=== PATIENT | male | born 1945 | race Caucasian/White ===

== ENCOUNTER 2018-11-14 07:39 | Day surgery (SDC) | payer OTHER | END 2018-11-14 22:57 | disposition home or self-care (01) | LOC: WOUND 07:39 | DX: S91.102A Unspecified open wound of left great toe without damage to nail, initial encounter (principal); S91.101A Unspecified open wound of right great toe without damage to nail, initial encounter; E78.5 Hyperlipidemia, unspecified | CPT/HCPCS: 87071; 87075; 87205; G0463 ==

== ENCOUNTER 2018-11-21 09:50 | Day surgery (SDC) | payer OTHER | END 2018-11-21 22:54 | disposition home or self-care (01) | LOC: WOUND 09:50 | DX: E11.621 Type 2 diabetes mellitus with foot ulcer (principal); L97.519 Non-pressure chronic ulcer of other part of right foot with unspecified severity; L97.529 Non-pressure chronic ulcer of other part of left foot with unspecified severity; E78.5 Hyperlipidemia, unspecified ==

== ENCOUNTER 2018-11-28 09:41 | Day surgery (SDC) | payer OTHER | END 2018-11-28 23:08 | disposition home or self-care (01) | LOC: WOUND 09:41 | DX: E11.621 Type 2 diabetes mellitus with foot ulcer (principal); L97.519 Non-pressure chronic ulcer of other part of right foot with unspecified severity; L97.529 Non-pressure chronic ulcer of other part of left foot with unspecified severity; S90.425D Blister (nonthermal), left lesser toe(s), subsequent encounter; E78.5 Hyperlipidemia, unspecified; E11.40 Type 2 diabetes mellitus with diabetic neuropathy, unspecified ==

== ENCOUNTER 2018-12-01 08:07 | Day surgery (SDC) | payer OTHER | END 2018-12-01 23:48 | disposition home or self-care (01) | LOC: WOUND 08:07 | DX: L89.893 Pressure ulcer of other site, stage 3 (principal); S90.425A Blister (nonthermal), left lesser toe(s), initial encounter; E11.40 Type 2 diabetes mellitus with diabetic neuropathy, unspecified | CPT/HCPCS: G0463 ==

== ENCOUNTER 2018-12-05 00:24 | Day surgery (SDC) | payer OTHER | END 2018-12-05 23:07 | disposition home or self-care (01) | LOC: WOUND 00:24 | DX: E11.621 Type 2 diabetes mellitus with foot ulcer (principal); L97.529 Non-pressure chronic ulcer of other part of left foot with unspecified severity; E11.40 Type 2 diabetes mellitus with diabetic neuropathy, unspecified; E78.5 Hyperlipidemia, unspecified ==

== ENCOUNTER 2018-12-12 00:16 | Day surgery (SDC) | payer OTHER | END 2018-12-12 22:52 | disposition home or self-care (01) | LOC: WOUND 00:16 | DX: L89.893 Pressure ulcer of other site, stage 3 (principal); E11.9 Type 2 diabetes mellitus without complications | CPT/HCPCS: G0463 ==

== ENCOUNTER 2019-10-20 00:04 | Day surgery (SDC) | payer OTHER | END 2019-10-20 22:49 | disposition home or self-care (01) | LOC: WOUND 00:04 | DX: E11.621 Type 2 diabetes mellitus with foot ulcer (principal); L97.522 Non-pressure chronic ulcer of other part of left foot with fat layer exposed; L97.512 Non-pressure chronic ulcer of other part of right foot with fat layer exposed; L97.412 Non-pressure chronic ulcer of right heel and midfoot with fat layer exposed; E11.21 Type 2 diabetes mellitus with diabetic nephropathy; E78.5 Hyperlipidemia, unspecified ==

== ENCOUNTER 2019-11-03 00:12 | Day surgery (SDC) | payer OTHER | END 2019-11-03 22:53 | disposition home or self-care (01) | LOC: WOUND 00:12 | DX: E11.621 Type 2 diabetes mellitus with foot ulcer (principal); E11.21 Type 2 diabetes mellitus with diabetic nephropathy; L97.522 Non-pressure chronic ulcer of other part of left foot with fat layer exposed; L97.512 Non-pressure chronic ulcer of other part of right foot with fat layer exposed; L97.412 Non-pressure chronic ulcer of right heel and midfoot with fat layer exposed; E11.40 Type 2 diabetes mellitus with diabetic neuropathy, unspecified; E78.5 Hyperlipidemia, unspecified ==

== ENCOUNTER 2019-11-10 00:13 | Day surgery (SDC) | payer OTHER | END 2019-11-10 22:43 | disposition home or self-care (01) | LOC: WOUND 00:13 | DX: E11.621 Type 2 diabetes mellitus with foot ulcer (principal); L97.522 Non-pressure chronic ulcer of other part of left foot with fat layer exposed; L97.512 Non-pressure chronic ulcer of other part of right foot with fat layer exposed; L97.412 Non-pressure chronic ulcer of right heel and midfoot with fat layer exposed; E11.21 Type 2 diabetes mellitus with diabetic nephropathy; E78.5 Hyperlipidemia, unspecified ==

== ENCOUNTER 2019-11-16 08:46 | Day surgery (SDC) | payer OTHER | END 2019-11-16 22:37 | disposition home or self-care (01) | LOC: WOUND 08:46 | DX: E11.621 Type 2 diabetes mellitus with foot ulcer (principal); E11.21 Type 2 diabetes mellitus with diabetic nephropathy; L97.522 Non-pressure chronic ulcer of other part of left foot with fat layer exposed; L97.512 Non-pressure chronic ulcer of other part of right foot with fat layer exposed; L97.412 Non-pressure chronic ulcer of right heel and midfoot with fat layer exposed | CPT/HCPCS: G0463 ==

== ENCOUNTER 2019-11-30 00:36 | Day surgery (SDC) | payer OTHER | END 2019-11-30 22:45 | disposition home or self-care (01) | LOC: WOUND 00:36 | DX: E11.621 Type 2 diabetes mellitus with foot ulcer (principal); E11.21 Type 2 diabetes mellitus with diabetic nephropathy; L97.522 Non-pressure chronic ulcer of other part of left foot with fat layer exposed; L97.512 Non-pressure chronic ulcer of other part of right foot with fat layer exposed; L97.412 Non-pressure chronic ulcer of right heel and midfoot with fat layer exposed | CPT/HCPCS: G0463 ==

== ENCOUNTER 2019-12-07 00:14 | Day surgery (SDC) | payer OTHER | END 2019-12-07 22:42 | disposition home or self-care (01) | LOC: WOUND 00:14 | DX: E11.621 Type 2 diabetes mellitus with foot ulcer (principal); L97.522 Non-pressure chronic ulcer of other part of left foot with fat layer exposed; L97.512 Non-pressure chronic ulcer of other part of right foot with fat layer exposed; L97.412 Non-pressure chronic ulcer of right heel and midfoot with fat layer exposed; E11.21 Type 2 diabetes mellitus with diabetic nephropathy | CPT/HCPCS: G0463 ==

== ENCOUNTER 2019-12-14 00:46 | Day surgery (SDC) | payer OTHER | END 2019-12-14 22:54 | disposition home or self-care (01) | LOC: WOUND 00:46 | DX: E11.621 Type 2 diabetes mellitus with foot ulcer (principal); E11.21 Type 2 diabetes mellitus with diabetic nephropathy; L97.522 Non-pressure chronic ulcer of other part of left foot with fat layer exposed; L97.512 Non-pressure chronic ulcer of other part of right foot with fat layer exposed; L97.412 Non-pressure chronic ulcer of right heel and midfoot with fat layer exposed | CPT/HCPCS: G0463 ==

== ENCOUNTER → 2020-02-20 | Outpatient (CLI) | payer OTHER | LOC: LAB 11:28 → LAB SHORT 11:28 | DX: R30.9 Painful micturition, unspecified (principal) | CPT/HCPCS: 87077; 87086; 87147; 87186 ==

== ENCOUNTER 2022-06-16 09:58 | Inpatient (IN) | payer OTHER ==
[~2022-06-16] VITALS: Ht 182.9 cm; Wt 82.6 kg
[2022-06-16] VITALS (18 sets, daily range): BP systolic 118–154; BP diastolic 72–84
[2022-06-16 10:48] LABS: EOSINOPHILS PERCENT AUTO 0 % (0-6); Hematocrit 45.8 % (37.0-53.0); Hemoglobin 15.9 g/dL (13.5-17.5); IMMATURE GRAN PERCENT AUTO 4 % (0-1); LYMPHOCYTES ABSOLUTE AUTO 1.54 K/mm3 (0.84-5.20); LYMPHOCYTES PERCENT AUTO 10 % (21-46); MONOCYTES ABSOLUTE AUTO 0.73 K/mm3 (0.16-1.47); MONOCYTES PERCENT AUTO 5 % (4-13); Mean Corpuscular HGB 28.4 pg (26.0-34.0); Mean Corpuscular HGB Conc 34.7 g/dL (31.5-36.5); Mean Corpuscular Volume 82 fL (80-100); Mean Platelet Volume 9.5 fL (9.1-12.4); NEUTROPHILS PERCENT AUTO 82 % (41-73); Platelet Count 366 K/mm3 (150-400); RDW Coefficient Variation 12.3 % (11.7-14.2); RDW Standard Deviation 37.2 fL (35.1-46.3); Red Blood Cell Count 5.59 M/mm3 (4.30-5.90); White Blood Cell Count 16.08 K/mm3 (4.00-11.30)
[2022-06-16 10:51] LABS: BASOPHILS ABSOLUTE AUTO 0.01 K/mm3 (0.00-0.23); BASOPHILS PERCENT AUTO 0 % (0-2)
[2022-06-16 11:03] LABS: Base Excess Venous -7.2 mmol/L; Bicarbonate Venous 19.3 mmol/L (24.0-30.0); PCO2 Venous 35.5 mmHg (38-42); pH Blood Venous 7.33 (7.34-7.37)
[2022-06-16 11:08] LABS: Magnesium, Blood 2.9 mg/dL (1.6-2.4)
[2022-06-16 11:10] LABS: Thyroid Stimulating Hormone 2.27 uIU/mL (0.360-4.800)
[2022-06-16 12:09] LABS: Albumin, Blood 2.5 g/dL (3.4-5.0); Albumin/Globulin Ratio 0.4 (0.8-1.8); Beta-hydroxybutyrate 55.2 mg/dL (0.2-2.8); Bilirubin, Total 0.5 mg/dL (0.1-1.0); Bun/Creatinine Ratio 55.5 (12.0-20.0); Calcium, Blood 9.6 mg/dL (8.5-10.1); Creatinine, Blood 0.92 mg/dL (0.60-1.20); Globulin, Blood 6.8 g/dL (2.2-4.0); Potassium, Blood 5.3 mmol/L (3.5-5.5); Total Protein, Blood 9.3 g/dL (6.4-8.2)
[2022-06-16 12:17] LABS: Source, Urine Clean Catch
[2022-06-16 12:19] LABS: Appearance, Urine Clear (Clear); Bilirubin, Urine Neg (Neg); Blood, Urine 5+ (Neg); Color, Urine Yellow (P-Yellow); Glucose Qualitative, Urine 4+ (Neg); Ketones, Urine 3+ (Neg); Leukocyte Esterase, Urine 2+ (Neg); Nitrite, Urine Neg (Neg); Protein, Urine 1+ (Neg); Urobilinogen, Urine NORM (Normal)
[2022-06-16 12:25] LABS: White Blood Cells, Urine Not Seen /hpf (0-5)
[2022-06-16 12:26] LABS: Bacteria Few /hpf; Squamous Epithelial Cells Not Seen /hpf (Few)
[2022-06-16 15:53] LABS: Bun/Creatinine Ratio 53.1 (12.0-20.0); Calcium, Blood 8.7 mg/dL (8.5-10.1); Creatinine, Blood 0.77 mg/dL (0.60-1.20); Potassium, Blood 4.6 mmol/L (3.5-5.5)
[2022-06-16 17:18] LABS: Albumin, Blood 2.2 g/dL (3.4-5.0); Anion Gap 8 mmol/L (6-16); Blood Urea Nitrogen 41 mg/dL (8-24); Bun/Creatinine Ratio 50.1 (12.0-20.0); CO2, Blood 20 mmol/L (21-32); Calcium, Blood 8.5 mg/dL (8.5-10.1); Chloride, Blood 101 mmol/L (98-108); Creatinine, Blood 0.82 mg/dL (0.60-1.20); Glomerular Filtration Rate 92 (60-); Glucose, Blood 320 mg/dL (70-99); Phosphorus, Blood 3.6 mg/dL (2.5-4.9); Potassium, Blood 4.7 mmol/L (3.5-5.5); Sodium, Blood 129 mmol/L (136-145)
[2022-06-16 17:34] LABS: CHOL/HDL RATIO 7.6; Cholesterol 197 mg/dL (50-200); HDL Cholesterol 26 mg/dL (>39); LDL/HDL RATIO 5.2; Low Density Lipoprotein Chol 136 mg/dL (0-110); Triglycerides 174 mg/dL (30-160); Very Low Density Lipoprot Chol 34 mg/dL (6-32)
--- NOTE | 2022-06-16 19:07 | NUR ---
PATIENT ARRIVED TO UNIT AROUND 1755. DAUGHTER NELL IN ROOM. NO COMPLAINTS OF PAIN. PATIENT AFEBRILE. PATIENT STATES HE USES CANE/ WALKER AT HOME. PER PATIENT AND DAUGHTER REPORT, PATIENT TOOK AUGMENTIN FROM ROOMMATE ON WEDNESDAY, OTHERWISE PATIENT HAS NOT TAKEN PRESCRIBED MEDS FOR OVER 18 MONTHS. PATIENT STATES HE TRIES NOT TO EAT MUCH SO HIS SUGARS AREN'T HIGH. PATIENT SATTING 90% AND GREATER ON RA. PATIENT SR, HR 90S TO LOW 100S. SBP 120S TO 150S. PATIENT GIVEN PRN ZOFRAN FOR NAUSEA. GUAIC + IN ER. TOLLIVER DRAINING DARK YELLOW URINE WITH SEDIMENT NOTED. COCCYX REDDENED BUT BLANCHEABLE. FACE LENARD. D5 1/2 NS INFUSING AT 100 MLS/ HOUR, NS TKO AND INSULIN DRIP AT 2 UNITS/ HOUR. LAST 2 BLOOD SUGARS 240 AND 222. REPORT GIVEN TO ASSUMING WEIGHT RECORDER NURSE.
--- NOTE | 2022-06-16 19:30 | NUR ---
ASSUMED CARE PT IS A&O X4 W/ FLAT AFFECT/WITHDRAWN (PTSD FROM PREVIOUS HOSPITAL EXPERIENCES WHEN YOUNGER PER REPORT). PT'S DAUGHTER AND SON AT BEDSIDE AT BEGINNING OF SHIFT. PT APPEARS TO BE NAUSEOUS (COUGHING/GAGGING INTO EMESIS BAG), BUT DENIES NAUSEA AND REFUSES ANTI-NAUSEA MEDICATION. NO C/O OF CP OR SOB. SPO2 >92% ON RA; MAP >65; HR IN THE 90'S. INSULIN GTT AND D5 1/2NS INFUSING PER ORDER (SEE FLOWSHEET FOR RATES). TOLLIVER PATENT AND DRAINING TO GRAVITY.
[2022-06-16 20:44] LABS: Albumin, Blood 2.2 g/dL (3.4-5.0); Anion Gap 6 mmol/L (6-16); Blood Urea Nitrogen 37 mg/dL (8-24); Bun/Creatinine Ratio 44.6 (12.0-20.0); CO2, Blood 26 mmol/L (21-32); Chloride, Blood 101 mmol/L (98-108); Creatinine, Blood 0.83 mg/dL (0.60-1.20); Glomerular Filtration Rate 92 (60-); Glucose, Blood 268 mg/dL (70-99); Phosphorus, Blood 3.4 mg/dL (2.5-4.9); Potassium, Blood 4.3 mmol/L (3.5-5.5); Sodium, Blood 133 mmol/L (136-145)
--- NOTE | 2022-06-16 21:28 | NUR ---
UPDATE PT REFUSES SCD'S; HAS CHEMICAL PROPHYLAXIS IN THE MORNING.
--- NOTE | 2022-06-16 22:04 | NUR ---
UPDATE DR DAVENPORT CALLED
[2022-06-17] VITALS (20 sets, daily range): BP systolic 97–149; BP diastolic 59–118
--- NOTE | 2022-06-17 02:36 | NUR ---
UPDATE PT REFUSED LAB DRAW THIS AM AND WAS EXPLAINED THE PURPOSE OF THE LABS AND RISKS/BENEFITS OF NOT ADHERING TO CAREPLAN. WHEN INFORMING CHARGE NURSE PT PULLED BOTH IV'S. DR FELIZ INFORMED W/ ORDERS TO START PT ON LONG/SHORT ACTING INSULIN. CURRENTLY ATTEMPTING TO CONTACT FAMILY; UNABLE TO REACH FAMILY AT THIS TIME.
--- NOTE | 2022-06-17 03:07 | NUR ---
PT WAS REFUSING TO TAKE LONG ACTING INSULIN. I SPOKE WITH PT AND EDUCATED HIM ON THE REASON FOR THE MEDICATION. I ASKED HIM WHY HE DID NOT WANT TO TAKE THE MEDICINE AND HE STATED THAT HE "DID NOT TRUST THEM ANYMORE". I ALLOWED HIM TO SEE THE MEDICATION AND THE PT ALLOWED ME TO ADMINISTER PER MD ORDER. VIKTORIA ZHOU RN AND I REPOSITIONED PT IN BED. HE REQUESTED SOME ICE CHIPS AND WARM BLANKETS, THOSE WERE GIVEN TO THE PATIENT WELL. PT PRIMARY NURSE ETHEL WAS UPDATED ON ALL ABOVE. PT DENIES ANY FURTHER NEEDS FROM THIS NURSE AT THIS TIME. INSTRUCTED PT TO NOTIFY STAFF FOR ANY FURTHER NEEDS/CONCERNS
--- NOTE | 2022-06-17 03:19 | NUR ---
UPDATE PT IS MORE AMICABLE TO CARE AFTER EXPLAINING EACH PROCEDURE. STILL STATES HE PREFERS NOT TO RECIEVE ANY MEDICATION, BUT WAS MORE AGREEABLE WHEN INFORMED THAT THIS RN WILL NOT GIVE HIM ANY MEDICATIONS WITHOUT SHOWING HIM. ALSO EDUCATED PT ON DISEASE PROCESS OF DIABETES/DKA.
[2022-06-17 04:15] LABS: BASOPHILS ABSOLUTE AUTO 0.13 K/mm3 (0.00-0.23); BASOPHILS PERCENT AUTO 1 % (0-2); EOSINOPHILS ABSOLUTE AUTO 0.01 K/mm3 (0.00-0.68); EOSINOPHILS PERCENT AUTO 0 % (0-6); Hematocrit 43.5 % (37.0-53.0); Hemoglobin 14.9 g/dL (13.5-17.5); IMMATURE GRAN ABSOLUTE AUTO 0.46 K/mm3 (0.00-0.10); IMMATURE GRAN PERCENT AUTO 3 % (0-1); LYMPHOCYTES ABSOLUTE AUTO 1.85 K/mm3 (0.84-5.20); LYMPHOCYTES PERCENT AUTO 12 % (21-46); MONOCYTES ABSOLUTE AUTO 1.19 K/mm3 (0.16-1.47); MONOCYTES PERCENT AUTO 8 % (4-13); Mean Corpuscular HGB 28.7 pg (26.0-34.0); Mean Corpuscular HGB Conc 34.3 g/dL (31.5-36.5); Mean Corpuscular Volume 84 fL (80-100); Mean Platelet Volume 9.2 fL (9.1-12.4); NEUTROPHILS ABSOLUTE AUTO 11.25 K/mm3 (1.96-9.15); NEUTROPHILS PERCENT AUTO 76 % (41-73); Platelet Count 339 K/mm3 (150-400); RDW Coefficient Variation 12.6 % (11.7-14.2); RDW Standard Deviation 38.1 fL (35.1-46.3); Red Blood Cell Count 5.19 M/mm3 (4.30-5.90); White Blood Cell Count 14.89 K/mm3 (4.00-11.30)
[2022-06-17 04:33] LABS: Bun/Creatinine Ratio 35.7 (12.0-20.0); Calcium, Blood 9.1 mg/dL (8.5-10.1); Creatinine, Blood 0.84 mg/dL (0.60-1.20)
--- NOTE | 2022-06-17 05:07 | NUR ---
SHIFT SUMMARY PT IS A&O W/ SOME INTERMITTENT CONFUSION/FORGETFULNESS; PT STATED HE DID NOT KNOW HE WAS IN THE HOSPITAL, BUT QUICKLY REORIENTED SELF. NO ACUTE EVENTS SINCE LAST NOTE. TOLLIVER CATHETER IS PATENT AND DRAINING TO GRAVITY.
--- NOTE | 2022-06-17 08:00 | NUR ---
INITIAL ASSESSMENT PATIENT ALERT AND ORIENTED X 4, AFEBRILE. PATIENT WEAK BUT MOVES ALL EXTREMITIES. L FOOT DROP NOTED. PATIENT STATES HE USES CANE OR WALKER AT HOME. PATIENT OVERESTIMATES ABILITIES. PATIENT EXPERIENCE PARANOIA AT TIMES DUE TO PAST SHOCK THERAPY IN MEDICAL SETTING. PATIENT HAS FLAT AFFECT; APATHETIC. PATIENT DENIES PAIN. PATIENT SATTING 90% AND GREATER ON RA. PATIENT IN SR TO ST, HR 90S TO LOW 100S. SBP 130S TO 140S. PATIENT DENIES NAUSEA. TOLLIVER DRAINING RAN COLORED URINE WITH SOME SMALL RED CLOTS NOTED; CLOTS IMPROVING. COCCYX REDDENED BUT BLANCHEABLE. GROIN FOLDS REDDENED. FACE FLUSHED. NO IV ACCESS. BLOOD SUGAR 330 THIS AM. BED LOW, CALL LIGHT IN REACH. WILL CONTINUE TO MONITOR PATIENT FREQUENTLY THROUGHOUT SHIFT.
--- NOTE | 2022-06-17 09:00 | NUR ---
DR. CARTAGENA UPDATED ON PATIENT STATUS. INFORMED THAT TROPONIN CONTINUES TO INCREASE AND IS CURRENTLY AT 582. INFORMED THAT PATIENT HAD A PARANOID EPISODE LAST NIGHT (FROM HOSPITALS, ETC FROM SHOCK THERAPY WHEN YOUNG PER DAUGHTER REPORT) AND ENDED UP RIPPING OUT ALL IVS AND LINES, THEREFORE DOES NOT HAVE ANY IV ACCESS AT THIS TIME. INFORMED THAT PATIENT IS ON IV PEPCID AND PO PROTONIX. DR. SALAS TO KEEP BOTH MEDS AND MAKE PEPCID PO.
[2022-06-17 12:29] LABS: Glucose, Blood 541 mg/dL (70-99)
--- NOTE | 2022-06-17 12:50 | NUR ---
DR. CARTAGENA CALLED AND INFORMED THAT PATIENT HAD HIGH GLUCOSE READING ON GLUCOMETER AND CAME BACK AT 541 FROM LAB DRAW. ORDERED FOR CHANGE FROM MEDIUM SLIDING SCALE TO HIGH SLIDING SCALE. STATED THAT IT IS OKAY TO GIVE PATIENT LUNCH. INFORMED THAT TOLLIVER IN FOR RETENTION. STATED SHE WOULD ORDER FLOMAX. STATED TO GIVE FLOMAX, BLADDER TRAIN AND GET TOLLIVER OUT.
--- NOTE | 2022-06-17 15:34 | NUR ---
Spiritual Care Visit. Pt. awake in bed and welcomes my visit. Pts. daughter and pts. roommate are present. Pt. is pleasant but displays moments of confusion. Facilitate a life review and established rapport as common life experience is shared. Pt. displayed evidence of being encouraged. Prayed with Pt. and roommate as daughter had left the room. Pt. and roomate verbalize gratitude for the spiritual care visit, and welcome this machine featheredger and reducer to return.
--- NOTE | 2022-06-17 16:40 | NUR ---
BLOOD SUGAR 322; HSS COVERAGE GIVEN. HR IN THE 80S. SBP IN THE 1-TEENS. NO OTHER ACUTE CHANGES NOTED AT THIS TIME. NO COMPLAINTS. WILL CONTINUE TO MONITOR.
--- NOTE | 2022-06-17 19:00 | NUR ---
SHIFT SUMMARY PATIENT REMAINED ALERT AND ORIENTED X 4, AFEBRILE. PATIENT HAD NO COMPLAINTS OF PAIN DURING SHIFT. PATIENT HAD NO EPISODES OF PARANOIA. PATIENT FLAT BUT WOULD JOKE WITH NURSE OCCASIONALLY. PATIENT WEAK, 1 PERSON ASSIST TO CHAIR WITH WALKER. PATIENT WORKED WITH OT THIS SHIFT. PATIENT REMAINED ON RA. HR 80S TO 1-TEENS. SBP 90S TO 140S. PATIENT HAD NAUSEA ONLY TWICE THIS SHIFT. PATIENT ATE 100% OF ALL MEALS. NO BM THIS SHIFT. PATIENT HAD 24OO MLS OF URINE OUT FROM TOLLIVER. FLOMAX STARTED FOR URINARY RETENTION PROBLEMS BEFORE TOLLIVER INSERT. PATIENT BLADDER TRAINED AND TOLLIVER DC'D; ATTENDS PLACED. NO CHANGES TO SKIN NOTED. PATIENT REPOSITIONED THROUGHOUT SHIFT. PATIENT HAD COMPLETE BED BATH. ECHO PERFORMED THIS SHIFT. BLOOD SUGARS 330, 541 AND 322 THIS SHIFT. MARY INSULIN INCREASED TO HSS. LONG ACTING INSULIN DOSE ALSO INCREASED. DAUGHTER IN MOST OF THE DAY. PATIENT HAS NO COMPLAINTS AT THIS TIME. BED LOW, CALL LIGHT IN REACH. REPORT GIVEN TO ASSUMING ELEVATOR BUILDER NURSE.
--- NOTE | 2022-06-17 20:12 | NUR ---
ASSUMED CARE PT FAMILY AT BEDSIDE TIL 1929. EDUCATION WAS GIVEN ON POTENTIAL CAUSES OF NIGHTTIME CONFUSION AND HOW THERE WAS A PLAN FORMULATED BETWEEN THIS RN AND THE PT TO PREVENT FURTHER CONFUSION (EXPLAIN EACH INTERVENTION AND SHOW PT EACH MEDICATION THAT IS BEING GIVEN). PT IS MUCH MORE COOPERATIVE W/ CARE AND CONVERSATIONAL SINCE PREVIOUS NIGHT THAT THIS RN TOOK CARE, D/T CONTRACT W/ PT. PT HAS NO C/O OF CP, SOB, OR NAUSEA.
[2022-06-18 05:31] VITALS: BP 132/78
[2022-06-18 07:53] VITALS: BP 135/88
[2022-06-18 07:57] LABS: BASOPHILS ABSOLUTE AUTO 0.09 K/mm3 (0.00-0.23); BASOPHILS PERCENT AUTO 1 % (0-2); EOSINOPHILS ABSOLUTE AUTO 0.03 K/mm3 (0.00-0.68); EOSINOPHILS PERCENT AUTO 0 % (0-6); Hematocrit 35.1 % (37.0-53.0); IMMATURE GRAN ABSOLUTE AUTO 0.52 K/mm3 (0.00-0.10); IMMATURE GRAN PERCENT AUTO 5 % (0-1); LYMPHOCYTES PERCENT AUTO 15 % (21-46); MONOCYTES ABSOLUTE AUTO 0.65 K/mm3 (0.16-1.47); MONOCYTES PERCENT AUTO 6 % (4-13); Mean Corpuscular HGB 28.3 pg (26.0-34.0); Mean Corpuscular HGB Conc 34.2 g/dL (31.5-36.5); Mean Corpuscular Volume 83 fL (80-100); Mean Platelet Volume 9.1 fL (9.1-12.4); NEUTROPHILS PERCENT AUTO 72 % (41-73); Platelet Count 230 K/mm3 (150-400); RDW Coefficient Variation 12.3 % (11.7-14.2); RDW Standard Deviation 37.3 fL (35.1-46.3); Red Blood Cell Count 4.24 M/mm3 (4.30-5.90); White Blood Cell Count 10.49 K/mm3 (4.00-11.30)
--- NOTE | 2022-06-18 08:00 | NUR ---
pt sitting up in a chair, follows commands but every question this nurse asks of him he states I don't know, needs a lot of direction, is very thirsty, swallowing without diff, lungs are clear t/o, resp even and unlabored, no cough noted, hrr, no edema noted, ppp+2, cap refill <3 sec, vs stable, afebrile, incont of urine, skin c/w/d, maew, weak, two person assist, plan is for snf. call light in reach.
[2022-06-18 08:16] LABS: Albumin, Blood 1.9 g/dL (3.4-5.0); Anion Gap 1 mmol/L (6-16); Blood Urea Nitrogen 27 mg/dL (8-24); Bun/Creatinine Ratio 31.4 (12.0-20.0); CO2, Blood 28 mmol/L (21-32); Calcium, Blood 8.2 mg/dL (8.5-10.1); Chloride, Blood 102 mmol/L (98-108); Creatinine, Blood 0.86 mg/dL (0.60-1.20); Glomerular Filtration Rate 91 (60-); Glucose, Blood 346 mg/dL (70-99); Magnesium, Blood 2.1 mg/dL (1.6-2.4); Phosphorus, Blood 2.4 mg/dL (2.5-4.9); Potassium, Blood 3.9 mmol/L (3.5-5.5); Sodium, Blood 131 mmol/L (136-145)
--- NOTE | 2022-06-18 15:40 | NUR ---
Spiritual Care Visit. Pt. is awake in bed and welcomes my visit. Family memebrs are present. Pt. displays evidence of increased awareness and engagement since our visit the day before. Pt. is pleasant. Consdidered matters of merline and belief. Pt. is only unsettled by receiving food that is not kosher, as the Pt. identifies as Mormon. Listen with empathy and a calming presence. Established rapport and prayed with the Pt. Pt. displayed evidence of iram and peace. Pt. and family verbalize gratitude for the spiritual care visit, and invite this management supervisor to return tomorrow.
[2022-06-18 17:01] VITALS: BP 138/82
--- NOTE | 2022-06-18 19:00 | NUR ---
pt was going to be discharged today, but glucose remained high, this evening it came down to 193, notified Dr. Amaro, will hold scheduled insulin and just give s/s, she will adjust tomorrow. no further changes this shift, call light in reach.
[2022-06-18 19:36] VITALS: BP 121/73
[2022-06-19 02:55] VITALS: BP 152/82
[2022-06-19 07:16] VITALS: BP 134/82
[2022-06-19 11:03] LABS: Influenza A, PCR NEGATIVE (NEGATIVE); Influenza B, PCR NEGATIVE (NEGATIVE); Resp Syncytial Virus, PCR NEGATIVE (NEGATIVE); SARS-Cov-2 (COVID-19) PCR, MMC NEGATIVE (NEGATIVE)
[2022-06-19] MEDS ORDERED: Calcium Carbon500 MG PO (12:10)
[2022-06-19] MEDS ORDERED: FAMO20 PO (12:10)
[2022-06-19] MEDS ORDERED: INSULIN GL100 UNIT/4 SC (12:11)
[2022-06-19] MEDS ORDERED: PANT40 PO (12:12)
[2022-06-19] MEDS ORDERED: HUMALOG KW100 UNIT/1 SC (12:12)
[2022-06-19] MEDS ORDERED: PHOSPHO-TRIN K500 MG PO (12:13)
[2022-06-19] MEDS ORDERED: TAMS.4ER PO (12:13)
--- NOTE | 2022-06-19 12:34 | NUR ---
PT DISCHARGED TO [facility]. PT REPORT GIVEN TO [facility] NURSE. DISCHARGE PACKET GIVEN TO PT'S DAUGHTER WITH INSTRUCTIONS TO GIVE TO [facility] NURSE. PT AND DAUGHTER ENCOURAGED TO CALL [facility] TO SET PT UP WITH PCP. PT HELPED BY OT TO DRESS. TELE DC'D. PT DID NOT HAVE IV. FAMILY STATED THEY DID NOT WANT [facility] TRANSPORTATION AND THAT THEY WOULD TRANSPORT PT, BY CAR, THEMSELVES. BELONGINGS SENT WITH PT. FAMILY AND PT VERBALIZED NO NEW QUESTIONS OR CONCERNS.
--- NOTE | 2022-06-19 12:35 | NUR ---
Attempted to make initial visit to offer completion of POLST or AD if pt/family desired. Pt had been d/c'd from hospital.
== END 2022-06-19 12:58 | disposition hospice, inpatient (51) | DRG 638 ==
LOC: ER 09:58 → ICUW 09:59 → ICUE 17:02 → MEDS 06-17 21:45
PROVIDERS: Student in an Organized Health Care Education/Training Program; ADMIT Internal Medicine
PROC: 0T9B70Z Drainage of Bladder with Drainage Device, Via Natural or Artificial Opening (ICD-10-PCS; principal; 2022-06-17)
DX: E11.10 Type 2 diabetes mellitus with ketoacidosis without coma (principal); E87.1 Hypo-osmolality and hyponatremia; N13.4 Hydroureter; K86.2 Cyst of pancreas; K62.5 Hemorrhage of anus and rectum; R77.8 Other specified abnormalities of plasma proteins; K20.90 Esophagitis, unspecified without bleeding; Z66 Do not resuscitate; N28.1 Cyst of kidney, acquired; R63.4 Abnormal weight loss; E87.8 Other disorders of electrolyte and fluid balance, not elsewhere classified; R01.1 Cardiac murmur, unspecified; Z20.822 Contact with and (suspected) exposure to COVID-19; B96.89 Other specified bacterial agents as the cause of diseases classified elsewhere; E86.1 Hypovolemia; R33.9 Retention of urine, unspecified; E11.42 Type 2 diabetes mellitus with diabetic polyneuropathy; E11.649 Type 2 diabetes mellitus with hypoglycemia without coma; Z91.148 Patient's other noncompliance with medication regimen for other reason; Z68.27 Body mass index [BMI] 27.0-27.9, adult
CPT/HCPCS: 0241U; 36415; 51702; 51798; 74177; 76705; 80048; 80053; 80061; 80069; 81001; 82010; 82272; 82803; 82947; 83036; 83605; 83690; 83735; 84443; 84484; 85025; 87077; 87086; 87186; 93005; 93010; 93306; 96361; 96361-59; 96372; 96374-59; 96375; 96376; 97110; 97161; 97166; 97530; 97535; 99285-25; A9270; C9113; G0378; J1650; J1815; J2405; J2550; J7030; J7042; J7050; Q9967

== ENCOUNTER → 2022-09-10 | Outpatient (CLI) | payer OTHER ==
[~2022-09-10] MED LIST: Calcium Carbon500 MG PO; FAMO20 PO; HUMALOG KW100 UNIT/1 SC; INSULIN GL100 UNIT/4 SC; PANT40 PO; PHOSPHO-TRIN K500 MG PO; TAMS.4ER PO
== END | disposition home or self-care (01) ==
LOC: LAB 15:47 → LAB SHORT 15:47
DX: E11.65 Type 2 diabetes mellitus with hyperglycemia (principal)
CPT/HCPCS: 83036

== ENCOUNTER → 2023-09-08 | Outpatient (CLI) | payer OTHER ==
[2023-09-08 19:10] LABS: BASOPHILS ABSOLUTE AUTO 0.06 K/mm3 (0.00-0.23); BASOPHILS PERCENT AUTO 1 % (0-2); EOSINOPHILS ABSOLUTE AUTO 0.12 K/mm3 (0.00-0.68); EOSINOPHILS PERCENT AUTO 2 % (0-6); Hematocrit 43.9 % (37.0-53.0); IMMATURE GRAN ABSOLUTE AUTO 0.04 K/mm3 (0.00-0.10); IMMATURE GRAN PERCENT AUTO 1 % (0-1); LYMPHOCYTES ABSOLUTE AUTO 2.52 K/mm3 (0.84-5.20); LYMPHOCYTES PERCENT AUTO 34 % (21-46); MONOCYTES ABSOLUTE AUTO 0.62 K/mm3 (0.16-1.47); MONOCYTES PERCENT AUTO 8 % (4-13); Mean Corpuscular HGB 30.3 pg (26.0-34.0); Mean Corpuscular HGB Conc 34.2 g/dL (31.5-36.5); Mean Corpuscular Volume 89 fL (80-100); Mean Platelet Volume 10.1 fL (9.1-12.4); NEUTROPHILS ABSOLUTE AUTO 4.09 K/mm3 (1.96-9.15); NEUTROPHILS PERCENT AUTO 55 % (41-73); Platelet Count 210 K/mm3 (150-400); RDW Coefficient Variation 13.2 % (11.7-14.2); RDW Standard Deviation 42.9 fL (35.1-46.3); Red Blood Cell Count 4.95 M/mm3 (4.30-5.90); White Blood Cell Count 7.45 K/mm3 (4.00-11.30)
[2023-09-08 19:31] LABS: Alanine Aminotransfer (ALT/SGP 32 U/L (12-78); Albumin, Blood 3.7 g/dL (3.4-5.0); Albumin/Globulin Ratio 0.9 (0.8-1.8); Alk Phos 76 U/L (50-136); Anion Gap 8 mmol/L (3-11); Aspartate Aminotrans (AST/SGOT 17 U/L (12-37); Bilirubin, Total 0.4 mg/dL (0.1-1.0); Blood Urea Nitrogen 18 mg/dL (8-24); Bun/Creatinine Ratio 18.1 (12.0-20.0); CHOL/HDL RATIO 6.8; CO2, Blood 28 mmol/L (21-32); Calcium, Blood 9.1 mg/dL (8.5-10.1); Chloride, Blood 107 mmol/L (98-108); Cholesterol 251 mg/dL (50-200); Creatinine, Blood 0.99 mg/dL (0.60-1.20); Glomerular Filtration Rate 79 (60-); Glucose, Blood 231 mg/dL (70-99); HDL Cholesterol 37 mg/dL (>39); LDL/HDL RATIO 4.4; Low Density Lipoprotein Chol 163 mg/dL (0-110); Potassium, Blood 4.2 mmol/L (3.5-5.5); Sodium, Blood 139 mmol/L (136-145); Total Protein, Blood 7.7 g/dL (6.4-8.2); Triglycerides 256 mg/dL (30-160); Very Low Density Lipoprot Chol 51 mg/dL (6-32)
== END | disposition home or self-care (01) ==
LOC: LAB 18:42 → LAB SHORT 18:42
PROVIDERS: Family Medicine
DX: E11.9 Type 2 diabetes mellitus without complications (principal); Z79.4 Long term (current) use of insulin
CPT/HCPCS: 80053; 80061; 82043; 83036; 85025